=== PATIENT | female | born 1955 | race Asian ===

== ENCOUNTER 2016-11-16 08:40 | Inpatient (IN) | payer OTHER ==
[2016-11-16] VITALS (15 sets, daily range): BP systolic 122–179; BP diastolic 45–65; PULSE 84–102; RESP 13–18; Ht 154.9 cm; Wt 61.0 kg
[~2016-11-16] VITALS: Ht 154.9 cm; Wt 61.0 kg
[2016-11-16] MEDS ORDERED: ATOR40TA68 PO (15:04)
[2016-11-16] MEDS ORDERED: LANT3I SC (15:04)
[2016-11-16] MEDS ORDERED: BENA40TA41 PO (15:04)
[2016-11-16] MEDS ORDERED: HYDR12.58 PO (15:05)
[2016-11-16] MEDS ORDERED: RANI300T PO (15:05)
[2016-11-16] MEDS ORDERED: ASPI-664 PO (15:06)
[2016-11-16] MEDS ORDERED: METF1000 PO (15:06)
--- NOTE | 2016-11-16 17:22 | HPN ---
Date/Time of Note Date/Time of Note DATE: 11/16/16 TIME: 17:22 Interval H&P Admission Note Pt. seen H&P reviewed: No system changes LUIS CARLOS ACEVEDO MD Nov 16, 2016 17:22
[2016-11-16] MEDS ORDERED: OXYCODONE/ACETAMINOPHEN (5/325) TAB PO PRN (17:30)
[2016-11-16] MEDS ORDERED: DIPHENHYDRAMINE 25 MG CAP PO PRN (17:30)
[2016-11-16] MEDS ORDERED: ONDANSETRON 4 MG INJ IV PRN ×2 (17:30→21:30)
[2016-11-16] MEDS: CEFAZOLIN 1 GM INJ IV SCH (17:30)
[2016-11-16] MEDS ORDERED: POLYMYXIN/BACITRACIN 1L IRRIG ONE (17:30)
[2016-11-16] MEDS ORDERED: DEXTROSE 50% 50 ML SYRINGE IV PRN ×2 (18:00)
[2016-11-16] MEDS ORDERED: GLUCOSE GEL 15 GRAM TUBE PO PRN ×2 (18:00)
[2016-11-16] MEDS ORDERED: GLUCOSE GEL 15 GRAM TUBE BUCCAL PRN (18:00)
[2016-11-16] MEDS: metFORMIN 500 MG TAB PO SCH (18:00)
[2016-11-16] MEDS ORDERED: GLUCAGON 1 MG INJ IM PRN (18:00)
[2016-11-16] MEDS ORDERED: ROPIVACAINE 0.5 % 30 ML VIAL ONE (18:05)
[2016-11-16] MEDS ORDERED: SUCCINYLCHOLINE CHLORIDE 100 MG/5 ML SYG IV ONE (18:38)
[2016-11-16] MEDS ORDERED: LIDOCAINE 2% (SDV) 5 ML INJ ONE (18:38)
[2016-11-16] MEDS ORDERED: PROPOFOL 20 ML ONE (18:38)
[2016-11-16] MEDS ORDERED: ROCURONIUM 50 MG INJ ONE (18:38)
[2016-11-16] MEDS ORDERED: CEFAZOLIN 1 GM INJ ONE (18:39)
[2016-11-16] MEDS ORDERED: METOCLOPRAMIDE 10 MG INJ ONE (18:39)
[2016-11-16] MEDS ORDERED: ONDANSETRON 4 MG INJ ONE (18:39)
[2016-11-16] MEDS ORDERED: MEPERIDINE 100 MG INJ ONE (19:15)
[2016-11-16] MEDS ORDERED: NEOMYC/POLYMYX/BACIT 30 GM OINT ONE (20:23)
[2016-11-16] MEDS: RANITIDINE 150 MG TAB PO SCH (21:00)
[2016-11-16] MEDS: ATORVASTATIN 40 MG TAB PO SCH (21:00)
--- NOTE | 2016-11-16 21:15 | OPR ---
Date/Time of Note Date/Time of Note DATE: 11/16/16 TIME: 21:06 Operative Report Procedure Date: Nov 16, 2016 Preoperative Diagnosis Right knee patella fracture Postoperative Diagnosis Right knee patella fracture Operation Performed Right knee patella open reduction internal fixation Surgeon Hitesh Acevedo MD Anesthesia Type: general, other (Fascia iliacus block) Anesthesiologist: NISHA OLIVIA MD Tourniquet Time: 77 minutes at 250 mmHg Estimated Blood Loss: 0 - 10 ml's Transfusion Required: no Specimen: none Grafts/Implants 2 4.0 mm partially threaded screws with washers with Arthrex fiber tape Complications: no Pt Condition Post Procedure: stable Disposition: PACU Indications Patient is a 61-year-old female sustained a right knee patellar fracture approximately 2 weeks ago. Given the displacement of the fracture patient was indicated for surgical reduction and fixation Operative\Procedure Findings Risk Note: Patient was explained the risks and benefits of surgery and the patient's [place] language including not limited to infection, bleeding, injury to blood vessels, nerves, ligaments or tendons. Risks of anesthesia, deep vein thrombosis and need for reduce future surgery. Patient acknowledged these risk by signing the surgical consent form. Procedure Description Patient's correct extremity was marked in the preoperative holding area and confirmed with the patient and consent and with family. Patient was given preoperative regional block anesthesia and preoperative antibiotics. Patient was then brought back to the operative theater placed supine on operative table. Patient was prepped and draped in normal sterile fashion and timeout was taken. All parties in the room agreed as the correct patient, extremity and patient. A sterile tourniquet was placed on the right upper thigh. Esmarch was brought to 250 mmHg. Incision was made from just proximal to the patella to distal to the inferior pole. Incision was brought down through the skin and a transverse fracture pattern was identified as well as a partial fracture through the distal pole involving the lateral one third. This however was well maintained with no complete displacement. The knee had an extensive hematoma which was extensively debrided and thoroughly irrigated with normal saline. The fracture was then reduced and held in position with pointed tenaculums. The forehead then 2 K wires placed across the fracture site and then it to partially threaded screws were then placed across the fracture site from inferior to superior once the fracture to be well reduced in the AP and lateral plane there was however shown to be some comminuted bone loss. The fracture was shown to have his close articular reduction as possible given the bone loss. The screws were placed across the fracture site and fracture site was reduced. A Arthrex fiber tape was then placed in a X like fashion from inferior to superior and superior to inferior and then tied inferior to the patella tendon. The wound was then irrigated thoroughly and closed along the extensor retinaculum with 0 Vicryl followed by 2-0 Tycron and then irrigated thoroughly again and then closed with 2-0 Vicryl followed by a running 3-0 Monocryl and Steri-Strips. Wound was then dressed with Xeroform and triple antibiotic ointment and placed in a well-padded bulky Whaley dressing and knee immobilizer locked in extension. Patient was brought to the PACU in stable condition. I then the case all sponge and needle counts were correct. In the PACU she had 2+ dorsalis pedis and posterior tibialis pulses and her toes are warm and well-perfused. HITESH ACEVEDO MD Nov 16, 2016 21:15
[2016-11-16] MEDS ORDERED: NACL 0.9% 3 ML SYG IV SCH (21:30)
[2016-11-16] MEDS: FAMOTIDINE 20 MG TAB PO SCH (21:30)
[2016-11-16] MEDS: morphine 1 MG/ML 30 ML (PCA) IV SCH ×2 (21:39→21:40)
--- NOTE | 2016-11-16 21:59 | HP ---
Date/Time of Note Date/Time of Note DATE: 11/16/16 TIME: 21:56 Assessment/Plan VTE Prophylaxis VTE Prophylaxis Intervention: SCD's Lines/Catheters IV Catheter Type (from Nrs): Peripheral IV Assessment/Plan Chief Complaint/Hosp Course This is a 61 female being admitted to the [facility] floor for: 1. Right knee patella fx: POD#0 s/p right knee patella orif. Continue immobilization of right knee as per ortho recs. Anticoag with ASA 81mg PO BID x 4 weeks starting in the AM. Further recs as per ortho. 2 incidental murmur: There is a possible left-sided cardiac systolic murmur. Patient denies any history of any cardiac issues. Denies any shortness of breath or dizziness when she ambulates. At the current time will obtain an echocardiogram. Patient likely can then follow-up as an outpatient with cardiology. 3. DM: check a1c, metformin, ISS, carb controlled diet, hold tonights dose of lantus 4. Hypertension: We will resume home medications as indicated. 5 hyperlipidemia: Continue statin. #6 DVT and GI prophylaxis: SCDs, acid star. Will start on aspirin 81 mg twice daily in the a.m. for 4 week As per Ortho recommendations. Further treatment strategy will be implemented as per the clinical course Problems: HPI/ROS Admit Date/Time Admit Date/Time Nov 16, 2016 at 14:47 Hx of Present Illness Chief complaint: Right knee pain This is a 61-year-old female who came in today for an elective right knee patellar ORIF procedure. Patient's history was obtained from the son as well as the patient. Patient fell on Day weekend and broke her patella. Patient is currently postop surgery and in the recovery room. Patient states that she is experiencing knee pain however otherwise is doing well. She tolerated the procedure well. Allergies: NKDA Medications: See MAR ROS Const: Negative for fever, chills, weight gain or weight loss, fatigue, or diaphoresis Eyes : No pain discharge or redness or change in visual acuity ENT: No pain, sore throat, congestion, congestion, dysphagia or discharge Respiratory: No shortness of breath, cough, sputum, wheezing, or pleuritic pain Cardiovascular: No chest pain, palpitation, PND, or edema GI : no change in appetite, abdominal pain, nausea, vomiting, diarrhea, constipation, or change in the color his stool Genitourinary: No dysuria, hematuria, flank pain , discharge or CVA tenderness Musculoskeletal: as per HPI Skin: No rash, bruising or hives Neuro: No headache, dizziness, syncope, seizure, focal weakness Endocrine: No polyuria, polydipsia, temperature intolerance Psych: No hallucination, depression, anxiety or suicidal ideation PMH/Family/Social Past Medical History htn, dm, hyperlipidemia, GERD Past Surgical History Status post right patella ORIF Family History Significant Family History: no pertinent family hx Social History Alcohol Use: none Smoking Status: Never smoker Drug Use: none Exam/Review of Systems Vital Signs Vitals Vital Signs Date Time Temp Pulse Resp B/P Pulse Ox O2 Delivery O2 Flow Rate FiO2 11/16/16 21:46 86 14 132/45 100 Nasal Cannula 2.0 11/16/16 21:09 99.7 Exam Exam General: Patient is a pleasant female laying in bed in the recovery room from surgery. Patient does state that she has knee pain and she does appear in mild distress HEENT: Atraumatic, normocephalic. The pupils are equal, round and reactive. Extraocular motor are intact Neck: Supple with full range of motion. No rigidity or meningismus Chest: Nontender Lungs: Clear to auscultation bilaterally no crackles rales or wheezing Heart: Suspected left-sided systolic murmur, regular rate rhythm Abdomen: Soft , nontender, nondistended , bowel sounds are present. No guarding no rebound tenderness , No masses or organomegaly. No costovertebral temporal angle mass Extremities: Right knee dressing clean dry and intact and in a brace Neurologic: Normal mental status, speech normal, cranial nerves II through XII are intact, motor and sensory are intact, no focal weakness Medications Medications Current Medications Oxycodone/ Acetaminophen (Percocet (5/ 325)) 2 tab Q4H PRN PO PAIN; Start 11/16 at 17:30 Morphine Sulfate (morphine) 5 mg Q4H PRN IV PAIN LEVEL 7-10; Start 11/16/16 at 17:30 Cefazolin Sodium (Ancef) 1 gm Q8H IV ; Start 11/16/16 at 17:30; Stop 11/18/16 at 09:31 Ondansetron HCl (Zofran Inj) 4 mg Q4H PRN IV NAUSEA AND/OR VOMITING; Start at 17:30 Diphenhydramine HCl (Benadryl) 25 mg Q4H PRN PO ITCHING; Start 11/16/16 at 17: 30 Morphine Sulfate (morphine) 1.5 MG DOSE 10 ... Q4PCA IV Last administered on t 21:40; Admin Dose 30 MG; Start 11/16/16 at 17:30 Atorvastatin Calcium (Lipitor) 40 mg QHS PO ; Start 11/16/16 at 21:00 Benazepril HCl (Lotensin) 40 mg DAILY PO ; Start 11/17/16 at 09:00 Ranitidine HCl (Zantac) 300 mg HS PO ; Start 11/16/16 at 21:00 Miscellaneous Information 1 ea NOTE XX ; Start 11/16/16 at 18:00 Glucose (Glutose) 15 gm Q15M PRN PO DECREASED GLUCOSE; Start 11/16/16 at 18:00 Glucose (Glutose) 22.5 gm Q15M PRN PO DECREASED GLUCOSE; Start 11/16/16 at 18: 00 Dextrose (D50w Syringe) 25 ml Q15M PRN IV DECREASED GLUCOSE; Start 11/16/16 at 18:00 Dextrose (D50w Syringe) 50 ml Q15M PRN IV DECREASED GLUCOSE; Start 11/16/16 at 18:00 Glucagon (Glucagen) 1 mg Q15M PRN IM DECREASED GLUCOSE; Start 11/16/16 at 18:00 Glucose (Glutose) 15 gm Q15M PRN BUCCAL DECREASED GLUCOSE; Start 11/16/16 at 18 :00 Ondansetron HCl (Zofran Inj) 4 mg Q6H PRN IV NAUSEA AND/OR VOMITING; Start at 21:30 Famotidine (Pepcid) 20 mg Q12 PO ; Start 11/16/16 at 21:30 Aspirin (Aspirin) 81 mg BID PO ; Start 11/17/16 at 09:00; Stop 12/14/16 at 08: 59 MICHELLE FERNANDES Nov 16, 2016 21:59
[2016-11-17] VITALS: BP 141/64; RESP 16
[2016-11-17] MEDS ORDERED: CEFAZOLIN 1 GM/50 ML (PMX) 50 ML IVPB ONE (00:57)
[2016-11-17] MEDS: CEFAZOLIN 1 GM INJ IV SCH (01:42)
[2016-11-17 02:00] VITALS: BP 141/64; RESP 16
[2016-11-17] MEDS: morphine 10 MG INJ IV PRN (03:11)
[2016-11-17] MEDS: ACCU-CHEK XX SCH ×5 (04:53→23:10)
[2016-11-17 06:06] LABS: BASOPHILS % 0.3 % (0.0-2.0); EOSINOPHILS % 0.1 % (0.0-7.0); HEMATOCRIT 31.2 % (37.0-47.0); HEMOGLOBIN 9.8 g/dl (12.0-16.0); LYMPHOCYTES # 1.4 10^3/ul (0.8-2.9); LYMPHOCYTES % 14.5 % (15.0-51.0); MEAN CORPUSCULAR HEMOGLOBIN 23.9 pg (29.0-33.0); MEAN CORPUSCULAR HGB CONC 31.4 g/dl (32.0-37.0); MEAN CORPUSCULAR VOLUME 76.1 fl (82.0-101.0); MEAN PLATELET VOLUME 9.5 fl (7.4-10.4); MONOCYTE # 0.5 10^3/ul (0.3-0.9); MONOCYTES % 4.7 % (0.0-11.0); NEUTROPHIL # 7.6 10^3/ul (1.6-7.5); NEUTROPHILS % 80.1 % (39.0-77.0); PLATELET COUNT 294 10^3/UL (140-415); RED CELL DISTRIBUTION WIDTH 14.7 % (11.5-14.5); WHITE BLOOD COUNT 9.5 10^3/ul (4.8-10.8)
[2016-11-17 06:55] LABS: ALBUMIN/GLOBULIN RATIO 1.25; BILIRUBIN,INDIRECT 0.3 mg/dl (0-1.1); BILIRUBIN,TOTAL 0.3 mg/dl (0.2-1.3); CALCIUM 9.1 mg/dl (8.4-10.2); CHOL/HDL RATIO 2.9 RATIO; CREATININE 0.65 mg/dl (0.44-1.00); POTASSIUM 4.3 mmol/L (3.5-5.1); TOTAL PROTEIN 7.2 g/dl (6.1-8.1)
[2016-11-17 07:04] LABS: T3 UPTAKE 39.1 % (23.5-40.5)
[2016-11-17 08:26] VITALS: BP 155/58; RESP 20
--- NOTE | 2016-11-17 09:02 | RADRPT ---
PROCEDURE: Intraoperative imaging of the right knee with fluoroscopy. CLINICAL INDICATION: Right knee pain. Intraoperative. TECHNIQUE: 11 images of the right knee were obtained in the operating room with an image intensifi er. No radiologist was in attendance. Fluoroscopy time is 60 seconds. COMPARISON: No prior study is available for comparison. FINDINGS: Images demonstrate open reduction and internal fixation of the right patella with 2 vertical cannula [place] screws. IMPRESSION: 1. Intraoperative imaging of the right knee. RPTAT: QQ .Dylan Roach MD, Date Time Electronically viewed and signed by .Dylan Roach MD, on 11/17/2016 09:02 .R/
[2016-11-17] MEDS: metFORMIN 500 MG TAB PO SCH ×2 (09:07→18:36)
[2016-11-17] MEDS: ASPIRIN 81 MG TAB PO SCH ×2 (09:08→20:53)
[2016-11-17] MEDS: FAMOTIDINE 20 MG TAB PO SCH ×2 (09:08→20:51)
[2016-11-17] MEDS: CEFAZOLIN 1 GM/50 ML (PMX) 50 ML IVPB SCH ×2 (09:08→17:52)
[2016-11-17] MEDS: BENAZEPRIL 40 MG TAB PO SCH (09:10)
[2016-11-17] MEDS: morphine 1 MG/ML 30 ML (PCA) IV SCH (11:47)
[2016-11-17 11:58] LABS: IRON 32 ug/dl (35-150)
[2016-11-17 12:08] LABS: TOTAL IRON BINDING CAPACITY 314 ug/dl (241-421)
[2016-11-17 14:00] VITALS: BP 161/72; RESP 20
--- NOTE | 2016-11-17 15:23 | PN ---
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 Pain is controlled. No f/c/n/v Constitutional: no complaints Feeding: advancing diet Pain Control: well controlled Exam/Review of Systems Vital Signs Vitals Vital Signs Date Time Temp Pulse Resp B/P Pulse Ox O2 Delivery O2 Flow Rate FiO2 11/17/16 17:30 16 11/17/16 14:00 99.5 109 161/72 93 11/17/16 02:00 Nasal Cannula 2.0 Intake and Output 11/16/16 11/16/16 11/17/16 15:00 23:00 07:00 Intake Total 350 ml 0 ml Output Total 10 ml Balance 340 ml 0 ml Exam Constitutional: alert, oriented, well developed Musculoskeletal: other (RLE/ dressing intact. ankle df/pf intact, ehl intact, silt to the m/l/d/p/fdws) Results Result Diagram: 11/17/16 0452 11/17/16 0452 LUIS CARLOS ACEVEDO MD Nov 17, 2016 15:23
--- NOTE | 2016-11-17 16:23 | PN ---
Date/Time of Note Date/Time of Note DATE: 11/17/16 TIME: 16:22 Assessment/Plan VTE Prophylaxis VTE Prophylaxis Intervention: other Lines/Catheters IV Catheter Type (from Nrsg): Peripheral IV Assessment/Plan Chief Complaint/Hosp Course 61 yo female with DMII, HTN who is POD1 of patella fracture surgery - Pain control - PT/OT per orthopedics DMII: - Continue metformin Aspirin BID for dvt ppx Problems: Subjective 24 Hr Interval Summary Free Text/Dictation Having pain in leg Otherwise no complaints Exam/Review of Systems Vital Signs Vitals Vital Signs Date Time Temp Pulse Resp B/P Pulse Ox O2 Delivery O2 Flow Rate FiO2 11/17/16 14:00 99.5 109 20 161/72 93 11/17/16 02:00 Nasal Cannula 2.0 Intake and Output 11/16/16 11/16/16 11/17/16 15:00 23:00 07:00 Intake Total 350 ml 0 ml Output Total 10 ml Balance 340 ml 0 ml Results Result Diagram: 11/17/16 0452 11/17/16 0452 Results 24 hrs Laboratory Tests Test 11/17/16 04:51 11/17/16 04:52 11/17/16 09:47 11/17/16 11:09 Bedside Glucose 146 175 White Blood Count 9.5 Red Blood Count 4.10 L Hemoglobin 9.8 L Hematocrit 31.2 L Mean Corpuscular Volume 76.1 L Mean Corpuscular Hemoglobin 23.9 L Mean Corpuscular Hemoglobin Concent 31.4 L Red Cell Distribution Width 14.7 H Platelet Count 294 Mean Platelet Volume 9.5 Neutrophils % 80.1 H Lymphocytes % 14.5 L Monocytes % 4.7 Eosinophils % 0.1 Basophils % 0.3 Nucleated Red Blood Cells % 0.0 Neutrophils # 7.6 H Lymphocytes # 1.4 Monocytes # 0.5 Eosinophils # 0.0 Basophils # 0.0 Nucleated Red Blood Cells # 0.0 Sodium Level 140 Potassium Level 4.3 Chloride Level 102 Carbon Dioxide Level 32 H Anion Gap 10 Blood Urea Nitrogen 14 Creatinine 0.65 Glucose Level 149 Hemoglobin A1c 7.3 H Calcium Level 9.1 Ferritin 72.4 Total Bilirubin 0.3 Direct Bilirubin 0.00 Indirect Bilirubin 0.3 Aspartate Amino Transf (AST/SGOT) 26 Alanine Aminotransferase (ALT/SGPT) 30 Alkaline Phosphatase 81 Total Protein 7.2 Albumin 4.0 Globulin 3.20 Albumin/Globulin Ratio 1.25 Triglycerides Level 56 Cholesterol Level 152 LDL Cholesterol, Calculated 90 HDL Cholesterol 51 Cholesterol/HDL Ratio 2.9 Free Thyroxine Index 3.64 Thyroxine (T4) 9.3 Triiodothyronine (T3) Uptake 39.1 Iron Level 32 L Total Iron Binding Capacity 314 Percent Iron Saturation 10 L Test 11/17/16 12:58 Bedside Glucose 196 Medications Medications Current Medications Oxycodone/ Acetaminophen (Percocet (5/ 325)) 2 tab Q4H PRN PO PAIN; Start 11/16 at 17:30 Morphine Sulfate (morphine) 5 mg Q4H PRN IV PAIN LEVEL 7-10 Last administered on 11/17/16 03:11; Admin Dose 5 MG; Start 11/16/16 at 17:30 Ondansetron HCl (Zofran Inj) 4 mg Q4H PRN IV NAUSEA AND/OR VOMITING; Start at 17:30 Diphenhydramine HCl (Benadryl) 25 mg Q4H PRN PO ITCHING; Start 11/16/16 at 17: 30 Morphine Sulfate (morphine) 1.5 MG DOSE 10 ... Q4PCA IV Last administered on 11:47; Admin Dose 30 MG; Start 11/16/16 at 17:30 Atorvastatin Calcium (Lipitor) 40 mg QHS PO ; Start 11/16/16 at 21:00 Benazepril HCl (Lotensin) 40 mg DAILY PO Last administered on 11/17/16 09:10; Admin Dose 40 MG; Start 11/17/16 at 09:00 Ranitidine HCl (Zantac) 300 mg HS PO ; Start 11/16/16 at 21:00 Miscellaneous Information 1 ea NOTE XX ; Start 11/16/16 at 18:00 Glucose (Glutose) 15 gm Q15M PRN PO DECREASED GLUCOSE; Start 11/16/16 at 18:00 Glucose (Glutose) 22.5 gm Q15M PRN PO DECREASED GLUCOSE; Start 11/16/16 at 18: 00 Dextrose (D50w Syringe) 25 ml Q15M PRN IV DECREASED GLUCOSE; Start 11/16/16 at 18:00 Dextrose (D50w Syringe) 50 ml Q15M PRN IV DECREASED GLUCOSE; Start 11/16/16 at 18:00 Glucagon (Glucagen) 1 mg Q15M PRN IM DECREASED GLUCOSE; Start 11/16/16 at 18:00 Glucose (Glutose) 15 gm Q15M PRN BUCCAL DECREASED GLUCOSE; Start 11/16/16 at 18 :00 Ondansetron HCl (Zofran Inj) 4 mg Q6H PRN IV NAUSEA AND/OR VOMITING; Start at 21:30 Famotidine (Pepcid) 20 mg Q12 PO Last administered on 11/17/16 09:08; Admin Dose 20 MG; Start 11/16/16 at 21:30 Aspirin 81 mg 81 mg BID PO Last administered on 11/17/16 09:08; Admin Dose 81 MG; Start 11/17/16 at 09:00; Stop 12/14/16 at 08:59 Cefazolin Sodium (Ancef 1 Gm/50 ml (Pmx)) 50 ml @ 100 mls/hr Q8H IVPB Last administered on 11/17/16 09:08; Admin Dose 100 MLS/HR; Start 11/17/16 at 09:30 ; Stop 11/18/16 at 17:59 Diagnostic Test (Pha) (Accu-Chek) 1 ea Q4 XX Last administered on 11/17/16 04: 53; Admin Dose 1 EA; Start 11/17/16 at 05:00 SHWETA AUSTIN MD Nov 17, 2016 16:23
[2016-11-17] MEDS ORDERED: SOD FERRIC GLUC COMPLX 125 MG in SOD CHLORIDE 0.9% 100 ML IVPB SCH (18:00)
[2016-11-17] MEDS ORDERED: RIVAROXABAN 10 MG TABLET PO SCH (18:00)
--- NOTE | 2016-11-17 18:21 | RADRPT ---
Echocardiogram Report Patient Name: ABDI BEVERLY Gender: Female Date: 1955 Study Date: 17-Nov-2016 Mathematician Research: Jose Sutton.[facility] Location: [id number] Ref. Physician: MICHELLE FERNANDES Quality: Adequate Procedures: Transthoracic echocardiogram with complete 2D, M-Mode, and doppler examination. Indications: Murmur. 2D/M Mode Doppler Measurement Value Normal Ranges Measurement Value Normal Ranges LVIDd 2D 3.6 3.5 - 5.6 cm TRELL Vmax 1.9 cm2 LVIDs 2D 2.1 2.1 - 4.1 cm TRELL VTI 2.3 cm2 FS 2D 40.9 % AV Mean Josué 1.4 m/sec LVPWd 2D 1.0 0.6 - 1.1 cm AV Mean PG 9.0 mmHg IVSd 2D 1.1 0.6 - 1.1 cm AV Peak Josué 2.0 m/sec IVS/LVPW 2D 1.0 AV Peak PG 16.0 mmHg AoR Diam 2D 2.2 2.0 - 3.7 cm AV VTI 37.6 cm LA/Ao 2D 1 0 - 1 LVOT Mean Josué 0.8 m/sec EDV 2D 45.5 cm3 LVOT Mean PG 3.0 mmHg ESV 2D 9.4 cm3 LVOT Peak Josué 1.2 m/sec LA Dimen 2D 2.6 2.3 - 4.0 cm LVOT Peak PG 6.0 mmHg LVOT Diam 2.0 cm LVOT VTI 27.3 cm LVOT Area 3.1 cm2 MV E Peak Josué 1.2 m/sec MV A Peak Josué 1.3 m/sec MV E/A 0.9 MV Decel Time 225 msec MV E/A 0.9 TR Peak Josué 2.5 m/sec TR Peak PG 26.0 mmHg RVSP 31.0 mmHg Findings Left Ventricle: Normal left ventricular systolic function. Normal left ventricular cavity size. Mild concentric left ventricular hypertrophy. Ejection fraction is visually estimated at 6065 %. Tissue Doppler/Mitral Doppler indices are consistent with impaired relaxation (Stage I diastolic dysfunction). Right Ventricle: Normal right ventricular size. Normal right ventricular systolic function. Left Atrium: The left atrium is normal in size. Right Atrium: The right atrium is normal in size. Mitral Valve: Mitral valve leaflets appear mildly thickened. Mild mitral annular calcification. Trace mitral regurgitation. Aortic Valve: Normal appearance of the aortic valve. No significant aortic stenosis or insufficiency. Tricuspid Valve: Normal appearance of the tricuspid valve. Estimated peak PA systolic pressure 31 mmHg. There is trace to mild tricuspid regurgitation. Pulmonic Valve: Normal pulmonic valve appearance. Pericardium: Normal pericardium with no significant pericardial effusion. Aorta: Normal aortic root. IVC: Normal size and normal respiratory collapse consistent with normal right atrial pressure. Conclusions 1.Normal left ventricular systolic function. Normal left ventricular cavity size. Mild concentric left ventricular hypertrophy. Ejection fraction is visually estimated at 60-65 %. Tissue Doppler/Mitral Doppler indices are consistent with impaired relaxation (Stage I diastolic dysfunction). 2.Mitral valve leaflets appear mildly thickened. Mild mitral annular calcification. Trace mitral regurgitation. 3.Normal appearance of the tricuspid valve. Estimated peak PA systolic pressure 31 mmHg. There is trace to mild tricuspid regurgitation. Electronically Signed By: Ronaldo Downey 17-Nov-2016 18:20:36 -0700 Patient Name: ABDI BEVERLY Study Date: 17-Nov-2016 [id number]
[2016-11-17] MEDS: INSULIN ASPART [NOVOLOG] 3 ML PEN SC SCH ×2 (18:43→21:00)
[2016-11-17 20:43] VITALS: BP 143/67; RESP 18
[2016-11-17] MEDS: ATORVASTATIN 40 MG TAB PO SCH (20:52)
[2016-11-17] MEDS: RANITIDINE 150 MG TAB PO SCH (20:52)
[2016-11-18] MEDS: CEFAZOLIN 1 GM/50 ML (PMX) 50 ML IVPB SCH ×3 (00:48→17:04)
[2016-11-18 02:52] VITALS: BP 137/68; RESP 18
[2016-11-18] MEDS: morphine 10 MG INJ IV PRN (03:32)
[2016-11-18 08:40] VITALS: BP 117/56; RESP 18
[2016-11-18] MEDS: FAMOTIDINE 20 MG TAB PO SCH ×2 (09:00→20:58)
[2016-11-18] MEDS: BENAZEPRIL 40 MG TAB PO SCH (09:48)
[2016-11-18] MEDS: metFORMIN 500 MG TAB PO SCH ×2 (09:49→17:47)
[2016-11-18] MEDS: ASPIRIN 81 MG TAB PO SCH ×2 (09:50→20:57)
[2016-11-18] MEDS: INSULIN ASPART [NOVOLOG] 3 ML PEN SC SCH ×4 (10:01→21:10)
[2016-11-18 13:30] VITALS: BP 124/56; RESP 18
--- NOTE | 2016-11-18 14:24 | PN ---
Date/Time of Note Date/Time of Note DATE: 11/18/16 TIME: 14:22 Assessment/Plan VTE Prophylaxis VTE Prophylaxis Intervention: other Lines/Catheters IV Catheter Type (from Nrsg): Saline Lock Urinary Cath still in place: No Assessment/Plan Chief Complaint/Hosp Course 61 yo female with DMII, HTN who is POD1 of patella fracture surgery Patella fracture: - Pain control - PT/OT - Management per ortho Iron deficiency: - Will need endoscopy as an outpatient - Ferrlicit while in house DMII: - Continue metformin Aspirin BID for dvt ppx Problems: Subjective 24 Hr Interval Summary Free Text/Dictation Workign with PT Pain is controlled Offered dc home today but prefers to stay another night and go home tomorrow Prescribed IV iron for iron deficiency Exam/Review of Systems Vital Signs Vitals Vital Signs Date Time Temp Pulse Resp B/P Pulse Ox O2 Delivery O2 Flow Rate FiO2 11/18/16 08:40 98.7 96 18 117/56 96 11/17/16 02:00 Nasal Cannula 2.0 Intake and Output 11/17/16 11/17/16 11/18/16 15:00 23:00 07:00 Intake Total 50 ml 1320 ml 1000 ml Output Total 800 ml 900 ml Balance 50 ml 520 ml 100 ml Exam Well appearing NAD RRR CTAB RLE with surgical brace and wrap Results Result Diagram: 11/17/1645111/17/16 0452 Results 24 hrs Laboratory Tests Test 11/17/16 17:55 11/17/16 20:48 11/18/16 07:56 Bedside Glucose 166 151 149 Medications Medications Current Medications Oxycodone/ Acetaminophen (Percocet (5/ 325)) 2 tab Q4H PRN PO PAIN; Start 11/16 at 17:30 Morphine Sulfate (morphine) 5 mg Q4H PRN IV PAIN LEVEL 7-10 Last administered on 11/18/16 03:32; Admin Dose 5 MG; Start 11/16/16 at 17:30 Diphenhydramine HCl (Benadryl) 25 mg Q4H PRN PO ITCHING; Start 11/16/16 at 17: 30 Atorvastatin Calcium (Lipitor) 40 mg QHS PO Last administered on 11/17/16 20: 52; Admin Dose 40 MG; Start 11/16/16 at 21:00 Benazepril HCl (Lotensin) 40 mg DAILY PO Last administered on 11/18/16 09:48; Admin Dose 40 MG; Start 11/17/16 at 09:00 Ranitidine HCl (Zantac) 300 mg HS PO Last administered on 11/17/16 20:52; Admin Dose 300 MG; Start 11/16/16 at 21:00 Miscellaneous Information 1 ea NOTE XX ; Start 11/16/16 at 18:00 Glucose (Glutose) 15 gm Q15M PRN PO DECREASED GLUCOSE; Start 11/16/16 at 18:00 Glucose (Glutose) 22.5 gm Q15M PRN PO DECREASED GLUCOSE; Start 11/16/16 at 18: 00 Dextrose (D50w Syringe) 25 ml Q15M PRN IV DECREASED GLUCOSE; Start 11/16/16 at 18:00 Dextrose (D50w Syringe) 50 ml Q15M PRN IV DECREASED GLUCOSE; Start 11/16/16 at 18:00 Glucagon (Glucagen) 1 mg Q15M PRN IM DECREASED GLUCOSE; Start 11/16/16 at 18:00 Glucose (Glutose) 15 gm Q15M PRN BUCCAL DECREASED GLUCOSE; Start 11/16/16 at 18 :00 Ondansetron HCl (Zofran Inj) 4 mg Q6H PRN IV NAUSEA AND/OR VOMITING; Start at 21:30 Famotidine (Pepcid) 20 mg Q12 PO Last administered on 11/17/16 20:51; Admin Dose 20 MG; Start 11/16/16 at 21:30 Aspirin 81 mg 81 mg BID PO Last administered on 11/18/16 09:50; Admin Dose 81 MG; Start 11/17/16 at 09:00; Stop 12/14/16 at 08:59 Cefazolin Sodium (Ancef 1 Gm/50 ml (Pmx)) 50 ml @ 100 mls/hr Q8H IVPB Last administered on 11/18/16 09:48; Admin Dose 100 MLS/HR; Start 11/17/16 at 09:30 ; Stop 11/18/16 at 17:59 Diagnostic Test (Pha) 1 ea 1 ea 02 XX ; Start 11/18/16 at 02:00 Ferric Sodium Gluconate Complex/ Sodium Chloride (Ferrlecit/NS) 110 ml @ 110 mls/hr Q24H IVPB ; Start 11/18/16 at 12:00; Stop 11/21/16 at 12:59 SHWETA AUSTIN MD Nov 18, 2016 14:24
[2016-11-18] MEDS: SOD FERRIC GLUC COMPLX 125 MG in SOD CHLORIDE 0.9% 100 ML IVPB SCH (15:51)
[2016-11-18] MEDS: HYDROCODONE/APAP (5/325) TAB PO PRN (17:12)
[2016-11-18] MEDS: ATORVASTATIN 40 MG TAB PO SCH (20:57)
[2016-11-18] MEDS: RANITIDINE 150 MG TAB PO SCH (20:58)
[2016-11-19] MEDS: ACCU-CHEK XX SCH (02:00)
[2016-11-19 02:32] VITALS: BP 123/54; RESP 18
[2016-11-19 08:03] VITALS: BP 127/58; RESP 17
[2016-11-19] MEDS: FAMOTIDINE 20 MG TAB PO SCH (08:43)
[2016-11-19] MEDS: ASPIRIN 81 MG TAB PO SCH (08:43)
[2016-11-19] MEDS: BENAZEPRIL 40 MG TAB PO SCH (08:44)
[2016-11-19] MEDS: metFORMIN 500 MG TAB PO SCH (08:44)
[2016-11-19] MEDS: INSULIN ASPART [NOVOLOG] 3 ML PEN SC SCH ×2 (08:46→11:40)
[2016-11-19] MEDS ORDERED: FER325 PO (10:19)
[2016-11-19] MEDS ORDERED: ASPI81TA3 PO (10:21)
--- NOTE | 2016-11-19 10:24 | PDOCDIS ---
Discharge Instructions DIAGNOSIS Discharge Diagnosis Patella fracture CONDITION Patient Condition: Good HOME CARE INSTRUCTIONS: Special Diet: carb controlled FOLLOW UP/APPOINTMENTS Follow-up Plan Call to make an appointment with you orthopedic surgeon Dr Baldwin in clinic You have been prescribed Aspirin 325 mg tabs to take twice a day for the next ten days in order to prevent a blood clot following your surgery You have also been found to have iron deficiency anemia. You have been prescribed an iron supplement to take. Please discuss this with your primary care doctor so they can pursue a workup of this condition Please call Dr Baldwin if any concerns regarding your surgery or post-operative course SHWETA AUSTIN MD Nov 19, 2016 10:24
--- NOTE | 2016-11-19 10:27 | DS ---
Date/Time of Note Date/Time of Note DATE: 11/19/16 TIME: 10:24 Discharge Summary Admission/Discharge Info Admit Date/Time Nov 16, 2016 at 14:47 Discharge Date/Time Discharge Diagnosis Patella fracture Patient Condition: Good Hx of Present Illness Chief complaint: Right knee pain This is a 61-year-old female who came in today for an elective right knee patellar ORIF procedure. Patient's history was obtained from the son as well as the patient. Patient fell on weekend and broke her patella. Patient is currently postop surgery and in the recovery room. Patient states that she is experiencing knee pain however otherwise is doing well. She tolerated the procedure well. Allergies: NKDA Medications: See APR Hospital Course 61 yo female with DMII, HTN who is POD1 of patella fracture surgery The patient was electively admitted for ORIF of her patella. This was completed successfully without comlication. She worked with PT following her surgery. She was found to have an iron deficiency anemia for which she was prescribed an iron supplement. She was encouraged to discuss this diagnosis with her primary care doctor for further evaluation and management She was set up with home PT services following discharge. Home Meds Active Scripts Aspirin (Aspirin) 81 Mg Chew, 325 MG PO BID for 10 Days, #20 TAB Prov:SHWETA AUSTIN MD 11/19/16 Ferrous Sulfate* (Ferrous Sulfate*) 325 Mg Tabec, 325 MG PO BID for 30 Days, # 60 TAB Prov:SHWETA AUSTIN MD 11/19/16 Reported Medications Metformin Hcl* (Metformin Hcl*) 1,000 Mg Tablet, 1000 MG PO WITH BREAKFAST DINNE , #30 TAB 11/16/16 Ranitidine Hcl* (Ranitidine Hcl*) 300 Mg Tablet, 300 MG PO HS, #30 TAB 11/16/16 Hydrochlorothiazide* (Hydrochlorothiazide*) 12.5 Mg Tablet, 12.5 MG PO DAILY, # 30 TAB 11/16/16 Benazepril Hcl* (Benazepril Hcl*) 40 Mg Tablet, 40 MG PO DAILY, #30 TAB 11/16/16 Insulin Glargine* (Lantus*) 100 Unit/Ml Soln, 20 UNIT SC QHS, #1 VIAL 11/16/16 Atorvastatin* (Atorvastatin*) 40 Mg Tablet, 40 MG PO QHS, #30 TAB 11/16/16 Discontinued Reported Medications Aspirin (Low Dose Aspirin) 81 Mg Tablet., 81 MG PO DAILY, #30 TAB 11/16/16 Follow-up Plan Call to make an appointment with you orthopedic surgeon Dr Baldwin in clinic You have been prescribed Aspirin 325 mg tabs to take twice a day for the next ten days in order to prevent a blood clot following your surgery You have also been found to have iron deficiency anemia. You have been prescribed an iron supplement to take. Please discuss this with your primary care doctor so they can pursue a workup of this condition Please call Dr Baldwin if any concerns regarding your surgery or post-operative course Primary Care Provider Flako [place] Time spent on discharge: > 30 minutes Pending Labs Laboratory Tests Test 11/18/16 17:39 11/18/16 20:56 11/19/16 01:41 11/19/16 08:31 Bedside Glucose 175mg/dL (70-220) 199mg/dL (70-220) 160mg/dL (70-220) 164mg/dL (70-220) SHWETA AUSTIN MD Nov 19, 2016 10:27
[2016-11-19] MEDS: SOD FERRIC GLUC COMPLX 125 MG in SOD CHLORIDE 0.9% 100 ML IVPB SCH (12:46)
[2016-11-19] MEDS: HYDROCODONE/APAP (5/325) TAB PO PRN (12:46)
[2016-11-19 14:00] VITALS: BP 117/72; RESP 18
== END 2016-11-19 16:35 | disposition home or self-care (01) | DRG 517 ==
LOC: REC 14:47 → EDSTATUS 17:30 → MS1 22:10
PROVIDERS: ADMIT Family Medicine; ATTEND Family Medicine
PROC: 0QSD04Z Reposition Right Patella with Internal Fixation Device, Open Approach (ICD-10-PCS; principal; 2016-11-16 17:30)
DX: S82.001A Unspecified fracture of right patella, initial encounter for closed fracture (principal); I10 Essential (primary) hypertension; E11.9 Type 2 diabetes mellitus without complications; W19.XXXA Unspecified fall, initial encounter; E78.5 Hyperlipidemia, unspecified
CPT/HCPCS: 73564; 80053; 80061; 82306; 82728; 82962; 83036; 83540; 84436; 84479; 85025; 87081; 93306; 97116; 97161; 97530; J0690; J1815; J2175; J2270; J2405; J2765; J2795; J2916; J7999